=== PATIENT | female | born 1990 | race Caucasian/White ===

== ENCOUNTER → 2020-09-01 10:10 | Outpatient (CLI) | payer OTHER, SELFPAY ==
--- NOTE | ~2020-09-01 | XR_ITS ---
EXAMINATION: XR knee RT 2V DATE: 09/01/2020 11:50 INDICATION: Right knee pain TECHNIQUE: Two views of the right knee were obtained. COMPARISON: None. FINDINGS: Alignment is normal. No fracture or osteochondral lesion. Joint spaces are normal with no e rosions. No joint effusion/synovitis. Soft tissues are unremarkable. IMPRESSION: 1. No acute osseous abnormality. Reviewed, dictated and finalized at location A.
== END ==
PROVIDERS: PCP Family Medicine; Visit Provider Physician Assistant
DX: M25.569 Pain in unspecified knee (principal)
CPT/HCPCS: 73560

== ENCOUNTER 2021-06-10 03:19 | Emergency (ER) | payer OTHER, SELFPAY ==
[2021-06-10 03:23] VITALS: BP 109/81; PULSE 72; RESP 20; TEMP 36.3; O2SAT 100
[2021-06-10] MEDS: KETOROLAC 30 MG/ML VIAL (*BKC) IM (04:33)
--- NOTE | 2021-06-10 05:05 | ED.LOWEXIN ---
HPI - Extremity Injury (Lower) General Chief Complaint: Extremity Injury, Lower Stated Complaint: left leg pain Time Seen by Provider: 06/10/21 04:46 Source: patient History of Present Illness HPI Narrative: Patient presents with of left thigh pain. Reports he had a history of the same this episodes and lasting a month and now she is having a difficult time sleeping so she came to the ER for evaluation. Pain is achy, constant, worse with moving her leg she has attempted topical creams and NSAIDs at home without relief so she came to the ER for evaluation. She denies any focal numbness or weakness she denies any recent trauma or injury. Reports she usually sees a chiropractor with helps her symptoms but has not with this episode Related Data Allergies Allergy/AdvReac Type Severity Reaction Status Date / Time No Known Allergies Allergy Verified 06/10/21 03:26 Review of Systems Review of Systems: CONSTITUTIONAL: Denies fever, chills, or sweats. EYES: Denies visual changes, redness, or discharge. ENT: Denies rhinorrhea, congestion, sore throat, or otalgia. CARDIOVASCULAR: Denies chest pain, palpitations, or edema. RESPIRATORY: Denies cough or dyspnea. GASTROINTESTINAL: Denies abdominal pain, nausea, vomiting, or diarrhea. GENITOURINARY: Denies dysuria or hematuria. SKIN: Denies rash or itching. MUSCULOSKELETAL: Denies back pain, joint pain, or myalgia. NEUROLOGIC: Denies headache, numbness, dizziness, or weakness. PSYCHIATRIC: Denies anxiety or depression. All systems reviewed & are unremarkable except as noted in HPI and below PMFSH Past Medical History Medical History Anxiety Family History Family History Grandparent Carcinoma of colon Social History Social History Second hand tobacco smoke exposure: No Alcohol intake: current Alcohol use details: rare Substance use: never Substance use type: does not use Gender identity (if verbalized by the patient): Female Exam Narrative: GENERAL: Well-appearing, well-nourished, and in no acute distress. HEAD: Normocephalic, atraumatic. EYES: PERRLA and EOMI. ENT: Nares clear, no rhinorrhea or epistaxis. Mucous membranes moist. NECK: Supple. No masses. No JVD EXTREMITIES: Tenderness palpation at the insertion point of the left hamstring no obvious deformity or swelling no erythema no edema patient has 5/5 strength in the bilateral lower extremities sensation intact to light touch in the bilateral lower extremities SKIN: Warm, dry, no rash. NEURO: No focal deficits. Alert and oriented x3. PSYCH: Normal mood and affect. Course Vital Signs Vital signs: Vital Signs Temperature 36.3 C L 06/10/21 03:23 Pulse Rate 72 06/10/21 03:23 Respiratory Rate 20 06/10/21 03:23 Blood Pressure 109/81 06/10/21 03:23 Pulse Oximetry 100 06/10/21 03:23 Temperature 36.3 C L 06/10/21 03:23 Pulse Rate 72 06/10/21 05:20 Respiratory Rate 12 06/10/21 05:20 Blood Pressure 109/81 06/10/21 03:23 Pulse Oximetry 99 06/10/21 05:20 MDM - Extremity Injury (Lower) MDM Narrative Medical decision making narrative: H&P as above, vss, pt looks clinically well, exam reassuring, labs/img considered, symptomatic relief available as needed, on reevaluation pt continues to looks clinically patient reported feeling well after the Toradol. Suspect acute on chronic tendinitis, dns fracture, dislocation, major neurovascular compromise, cord compromise. plan to tx/monitor as op w/ pcm f/u findings/plan discussed with pt, pt agree/comfortable with plan, return precautions given Discharge Plan Discharge Clinical Impression: Acute leg pain Qualifiers: Laterality: left Qualified Code(s): M79.605 - Pain in left leg Patient Disposition: Home, Self-Care Condition: Improved Instructions: Antibiotic Form
[2021-06-10 05:20] VITALS: PULSE 72; RESP 12; O2SAT 99
== END 2021-06-10 05:18 | disposition home or self-care (01) ==
PROVIDERS: Emergency Provider Emergency Medicine; PCP Family Medicine
DX: M79.652 Pain in left thigh (principal); F41.9 Anxiety disorder, unspecified
CPT/HCPCS: 96372; 99283; J1885

== ENCOUNTER → 2021-06-29 09:30 | Outpatient (CLI) | payer OTHER, SELFPAY ==
--- NOTE | ~2021-06-29 | MR_ITS ---
EXAMINATION: MR hip LT wo con DATE: 06/29/2021 10:20 INDICATION: Left hip pain. TECHNIQUE: Magnetic resonance imaging (MRI) of the left hip was performed without intravenous contras t. Sequences included axial and coronal PD-weighted FS FSE and axial T1-weighted FSE of the pelvis. S equences of the hip included 2D FIESTA, T1-weighted fast GRE, and axial, coronal, and sagittal PD-heriberto ghted FS FSE. COMPARISON: Pelvis radiograph 06/16/2021 FINDINGS: Bones/cartilage: Bone alignment is normal. No fracture. The femoral head/neck morphologies are normal. The left hip ca rtilage is normal. Labrum: The left acetabular labrum is normal. Fluid: There is no hip joint effusion. There is a physiologic volume of fluid in the trochanteric bursae. Soft tissues: The iliopsoas tendons are normal. The hamstring tendon origins and gluteus minimus and gluteus medius tendons are normal. IMPRESSION: 1. No etiology for the patient's symptoms. Reviewed, dictated and finalized at location A. PMENT ASSOCIATE
== END ==
PROVIDERS: Visit Provider Orthopaedic Surgery
DX: M25.552 Pain in left hip (principal)
CPT/HCPCS: 73721

== ENCOUNTER 2022-05-04 12:07 | Outpatient (CLI) | payer OTHER, SELFPAY ==
--- NOTE | ~2022-05-04 | XR_ITS ---
XR abdomen/kub 1V 05/04/2022 12:21 INDICATION: Bloating and gas TECHNIQUE: KUB COMPARISON: None FINDINGS: Bowel gas pattern is normal. Moderate colonic fecal loading. There is no evidence of free a ir, mass, organomegaly, ascites or obstruction. No abnormal calculi are seen. The bones appear inta ct. There are pelvic phleboliths. IMPRESSION: 1: No acute abdominal abnormality identified. Reviewed, dictated and finalized at location A. RRAGE WORKER
== END 2022-05-04 12:08 | disposition home or self-care (01) ==
PROVIDERS: PCP Family Medicine; Visit Provider Nurse Practitioner Family
DX: K92.89 Other specified diseases of the digestive system (principal)
CPT/HCPCS: 74018